=== PATIENT | male | born 1950 | race Caucasian/White ===

== ENCOUNTER 2017-06-15 14:12 | Inpatient (IN) | payer MEDICAID, MEDICARE ==
[~2017-06-15] VITALS: Ht 177.8 cm; Wt 142.4 kg
[~2017-06-15 14:12] MED LIST: GLIP10TA9 PO; HYDR25TA PO; METO100T14 PO; NIFE90TA45 PO; PIOG30TA10 PO; PROB500T26 PO; SIMV40TA5 PO
[2017-06-15 14:32] LABS: GLUCOSE,POINT OF CARE 169 MG/DL (70-110)
[2017-06-15] MEDS ORDERED: METF10002 PO (14:34)
[2017-06-15] MEDS ORDERED: ATOR20TA86 PO (14:34)
[2017-06-15] MEDS ORDERED: LOSA1TAB40 PO (14:34)
[2017-06-15] MEDS ORDERED: CLON-570 PO (14:34)
[2017-06-15] MEDS ORDERED: ASPI-556 PO (14:34)
[2017-06-15] MEDS ORDERED: SITA100 PO (14:34)
[2017-06-15] MEDS ORDERED: AMLO-512 PO (14:34)
[2017-06-15] MEDS ORDERED: MORPHINE SULFATE 4 MG/ML SYRINGE IVP ONE (15:30)
[2017-06-15] MEDS ORDERED: ONDANSETRON HCL 4 MG/2 ML VIAL IVP ONE (15:30)
[2017-06-15 15:42] LABS: BASOPHILS # (AUTO) 0.02 K/uL (0.00-0.20); BASOPHILS % (AUTO) 0.3 % (0.0-2.0); EOSINOPHILS # (AUTO) 0.34 K/uL (0.00-0.70); EOSINOPHILS % (AUTO) 3.58 % (1.0-6.0); HEMATOCRIT 34.7 % (41-53); HEMOGLOBIN 11.9 g/dL (13.5-17.5); LYMPHOCYTES % (AUTO) 21.5 % (22.0-44.0); MEAN CORPUSCULAR HEMOGLOBIN 29.4 pg (26.0-34.0); MEAN CORPUSCULAR HGB CONC 34.2 G/dL (31.0-37.0); MEAN CORPUSCULAR VOLUME 86 fL (80-100); MONOCYTES # (AUTO) 1.2 K/uL (0.1-1.0); NEUTROPHILS # (AUTO) 5.8 K/uL (1.8-7.7); NEUTROPHILS % (AUTO) 61.7 % (40.0-70.0); PLATELET COUNT (AUTO) 213 K/uL (150-450); RED BLOOD CELL COUNT(AUTO) 4.03 MIL/uL (4.50-5.90); WHITE BLOOD COUNT (AUTO) 9.4 K/uL (4.5-11.0)
[2017-06-15 16:02] LABS: CALCIUM, TOTAL 8.8 mg/dL (8.8-10.5); CREATININE 1.75 mg/dL (0.60-1.30); POTASSIUM 3.7 mmol/L (3.5-5.1)
[2017-06-15 16:12] LABS: ALBUMIN 3.1 g/dL (3.4-5.0); BILIRUBIN,TOTAL 0.3 mg/dL (0.1-1.0); TOTAL PROTEIN, SERUM 7.1 g/dL (6.4-8.2)
[2017-06-15] MEDS ORDERED: VANCOMYCIN HCL 1.5 GM in DEXTROSE 5%-WATER 250 ML IV ONE (16:30)
[2017-06-15] MEDS ORDERED: 0.9% SODIUM CHLORIDE 10 ML SYRINGE IVP PRN (17:00)
[2017-06-15] MEDS ORDERED: ACETAMINOPHEN 325 MG TABLET PO PRN ×2 (17:00→21:00)
[2017-06-15] MEDS ORDERED: ONDANSETRON HCL 4 MG/2 ML VIAL IVP PRN (17:00)
[2017-06-15 17:28] VITALS: BP 136/77
[2017-06-15] MEDS ORDERED: PNEUMOCOCCAL VACCINE POLYVALENT 0.5 ML VIAL [PPSV23] IM ONE (18:00)
[2017-06-15] MEDS ORDERED: INFLUENZA VIRUS VACCINE QVS 2017-18 (3YR+)/PF 60 MCG/0.5 ML SYRINGE IM ONE (18:00)
[2017-06-15] MEDS ORDERED: SODIUM CHLORIDE 0.9% 500 ML IV ONE (18:39)
[2017-06-15] MEDS ORDERED: DEXTROSE 50%-WATER 25 GM/50 ML SYRINGE IVP PRN (18:45)
[2017-06-15 20:01] VITALS: BP 145/77
[2017-06-15] MEDS: INSULIN ASPART 100 UNITS/ML SQ PRN (20:34)
[2017-06-15] MEDS ORDERED: BISACODYL 10 MG RECTAL RECTAL SUPPOSITORY PR PRN (21:00)
[2017-06-15] MEDS: DOCUSATE SODIUM 100 MG CAPSULE PO SCH (21:00)
[2017-06-15] MEDS ORDERED: ZOLPIDEM TARTRATE 5 MG TABLET PO PRN (21:00)
[2017-06-15] MEDS: HEPARIN SODIUM,PORCINE 5,000 UNITS/ML VIAL SQ SCH (21:07)
[2017-06-15] MEDS: ATORVASTATIN CALCIUM 20 MG TABLET PO SCH (21:07)
[2017-06-15] MEDS: CloNIDine HCL 0.1 MG TABLET PO SCH (21:07)
[2017-06-15 22:33] LABS: GLUCOSE COMMENT 1 Received Meds; GLUCOSE,POINT OF CARE 178 MG/DL (70-110)
[2017-06-16 00:03] VITALS: BP 116/60
[2017-06-16] MEDS: OxyCODONE HCL/ACETAMINOPHEN 5-325 MG TABLET PO PRN ×3 (02:45→20:27)
[2017-06-16 04:59] VITALS: BP 126/74
[2017-06-16 05:44] LABS: BASOPHILS # (AUTO) 0.04 K/uL (0.00-0.20); BASOPHILS % (AUTO) 0.4 % (0.0-2.0); EOSINOPHILS # (AUTO) 0.33 K/uL (0.00-0.70); HEMATOCRIT 32.5 % (41-53); HEMOGLOBIN 10.9 g/dL (13.5-17.5); LYMPHOCYTES # (AUTO) 2.3 K/uL (1.0-4.8); LYMPHOCYTES % (AUTO) 23.9 % (22.0-44.0); MEAN CORPUSCULAR HEMOGLOBIN 29.8 pg (26.0-34.0); MEAN CORPUSCULAR HGB CONC 33.5 G/dL (31.0-37.0); MEAN CORPUSCULAR VOLUME 89 fL (80-100); MONOCYTES # (AUTO) 1.3 K/uL (0.1-1.0); MONOCYTES % (AUTO) 13.1 % (2.0-9.0); NEUTROPHILS # (AUTO) 5.7 K/uL (1.8-7.7); NEUTROPHILS % (AUTO) 59.1 % (40.0-70.0); PLATELET COUNT (AUTO) 210 K/uL (150-450); RED BLOOD CELL COUNT(AUTO) 3.65 MIL/uL (4.50-5.90); WHITE BLOOD COUNT (AUTO) 9.7 K/uL (4.5-11.0)
[2017-06-16 05:48] LABS: GLUCOSE COMMENT 1 Received Meds; GLUCOSE,POINT OF CARE 141 MG/DL (70-110)
[2017-06-16 05:50] LABS: CALCIUM, TOTAL 8.3 mg/dL (8.8-10.5); CREATININE 1.7 mg/dL (0.60-1.30); POTASSIUM 3.5 mmol/L (3.5-5.1)
[2017-06-16] MEDS: INSULIN ASPART 100 UNITS/ML SQ PRN ×3 (06:46→20:29)
[2017-06-16 07:20] VITALS: BP 116/52
[2017-06-16] MEDS: CloNIDine HCL 0.1 MG TABLET PO SCH ×2 (07:47→20:27)
[2017-06-16] MEDS: PANTOPRAZOLE SODIUM 40 MG DR TABLET PO SCH (07:47)
[2017-06-16] MEDS: DOCUSATE SODIUM 100 MG CAPSULE PO SCH ×2 (07:47→20:28)
[2017-06-16] MEDS: ASPIRIN 81 MG CHEWABLE TABLET PO SCH (07:47)
[2017-06-16] MEDS: VANCOMYCIN HCL 1.5 GM in DEXTROSE 5%-WATER 250 ML IV SCH (07:48)
[2017-06-16] MEDS: HEPARIN SODIUM,PORCINE 5,000 UNITS/ML VIAL SQ SCH ×2 (07:48→20:28)
[2017-06-16 10:43] VITALS: BP 115/54
[2017-06-16 12:17] LABS: GLUCOSE COMMENT 1 Received Meds; GLUCOSE,POINT OF CARE 167 MG/DL (70-110)
[2017-06-16 15:10] VITALS: BP 114/67
[2017-06-16 18:38] LABS: GLUCOSE,POINT OF CARE 121 MG/DL (70-110)
[2017-06-16 19:23] VITALS: BP 115/54
[2017-06-16] MEDS: ATORVASTATIN CALCIUM 20 MG TABLET PO SCH (20:27)
[2017-06-17] VITALS (7 sets, daily range): BP systolic 123–155; BP diastolic 63–80
[2017-06-17] MEDS: OxyCODONE HCL/ACETAMINOPHEN 5-325 MG TABLET PO PRN ×2 (00:29→21:51)
[2017-06-17 04:13] LABS: GLUCOSE COMMENT 1 Received Meds; GLUCOSE,POINT OF CARE 154 MG/DL (70-110)
[2017-06-17 06:18] LABS: CALCIUM, TOTAL 8.4 mg/dL (8.8-10.5); CREATININE 1.64 mg/dL (0.60-1.30); POTASSIUM 3.5 mmol/L (3.5-5.1)
[2017-06-17] MEDS: CloNIDine HCL 0.1 MG TABLET PO SCH ×2 (08:13→20:09)
[2017-06-17] MEDS: HEPARIN SODIUM,PORCINE 5,000 UNITS/ML VIAL SQ SCH ×2 (08:13→20:08)
[2017-06-17] MEDS: VANCOMYCIN HCL 1.5 GM in DEXTROSE 5%-WATER 250 ML IV SCH (08:13)
[2017-06-17] MEDS: ASPIRIN 81 MG CHEWABLE TABLET PO SCH (08:14)
[2017-06-17] MEDS: PANTOPRAZOLE SODIUM 40 MG DR TABLET PO SCH (08:14)
[2017-06-17] MEDS: DOCUSATE SODIUM 100 MG CAPSULE PO SCH ×2 (08:14→20:09)
[2017-06-17] MEDS: LEVOFLOXACIN 500 MG TABLET PO SCH (09:18)
[2017-06-17] MEDS: INSULIN ASPART 100 UNITS/ML SQ PRN ×2 (11:14→21:50)
[2017-06-17 12:48] LABS: GLUCOSE COMMENT 1 Received Meds; GLUCOSE,POINT OF CARE 167 MG/DL (70-110)
[2017-06-17 17:52] LABS: GLUCOSE,POINT OF CARE 137 MG/DL (70-110)
[2017-06-17] MEDS ORDERED: VANCOMYCIN HCL 500 MG in DEXTROSE 5%-WATER 100 ML IV ONE (20:00)
[2017-06-17 20:03] LABS: GLUCOSE,POINT OF CARE 137 MG/DL (70-110)
[2017-06-17] MEDS: ATORVASTATIN CALCIUM 20 MG TABLET PO SCH (20:09)
[2017-06-18 00:23] LABS: GLUCOSE COMMENT 1 Received Meds; GLUCOSE,POINT OF CARE 157 MG/DL (70-110)
[2017-06-18 04:36] VITALS: BP 154/78
[2017-06-18 05:17] LABS: GLUCOSE COMMENT 1 Received Meds; GLUCOSE,POINT OF CARE 148 MG/DL (70-110)
[2017-06-18 05:27] LABS: CALCIUM, TOTAL 8.7 mg/dL (8.8-10.5); CREATININE 1.69 mg/dL (0.60-1.30); POTASSIUM 4.2 mmol/L (3.5-5.1)
[2017-06-18] MEDS: INSULIN ASPART 100 UNITS/ML SQ PRN ×3 (06:17→21:05)
[2017-06-18 07:26] VITALS: BP 122/76
[2017-06-18] MEDS: DOCUSATE SODIUM 100 MG CAPSULE PO SCH ×3 (08:10→21:00)
[2017-06-18] MEDS: PANTOPRAZOLE SODIUM 40 MG DR TABLET PO SCH (08:11)
[2017-06-18] MEDS: ASPIRIN 81 MG CHEWABLE TABLET PO SCH (08:11)
[2017-06-18] MEDS: HEPARIN SODIUM,PORCINE 5,000 UNITS/ML VIAL SQ SCH ×2 (08:11→19:55)
[2017-06-18] MEDS: CloNIDine HCL 0.1 MG TABLET PO SCH ×2 (08:11→19:55)
[2017-06-18] MEDS: VANCOMYCIN HCL 1 GM/D5% WATER 200 ML IV SCH ×2 (08:13→19:56)
[2017-06-18 11:32] VITALS: BP 141/78
[2017-06-18 13:27] LABS: GLUCOSE,POINT OF CARE 170 MG/DL (70-110)
[2017-06-18 13:58] LABS: BASOPHILS # (AUTO) 0.04 K/uL (0.00-0.20); BASOPHILS % (AUTO) 0.5 % (0.0-2.0); EOSINOPHILS # (AUTO) 0.29 K/uL (0.00-0.70); EOSINOPHILS % (AUTO) 3.55 % (1.0-6.0); HEMATOCRIT 33.5 % (41-53); HEMOGLOBIN 11.1 g/dL (13.5-17.5); LYMPHOCYTES # (AUTO) 1.5 K/uL (1.0-4.8); LYMPHOCYTES % (AUTO) 18.7 % (22.0-44.0); MEAN CORPUSCULAR HEMOGLOBIN 29.4 pg (26.0-34.0); MEAN CORPUSCULAR HGB CONC 33.3 G/dL (31.0-37.0); MEAN CORPUSCULAR VOLUME 88 fL (80-100); MONOCYTES # (AUTO) 1.1 K/uL (0.1-1.0); MONOCYTES % (AUTO) 14.1 % (2.0-9.0); NEUTROPHILS # (AUTO) 5.1 K/uL (1.8-7.7); NEUTROPHILS % (AUTO) 63.2 % (40.0-70.0); PLATELET COUNT (AUTO) 216 K/uL (150-450); RED BLOOD CELL COUNT(AUTO) 3.79 MIL/uL (4.50-5.90); RED CELL DISTRIBUTION WIDTH 15.8 % (11.5-14.5); WHITE BLOOD COUNT (AUTO) 8.1 K/uL (4.5-11.0)
[2017-06-18 16:19] VITALS: BP 155/89
[2017-06-18 19:19] VITALS: BP 157/72
[2017-06-18 19:32] LABS: GLUCOSE,POINT OF CARE 120 MG/DL (70-110)
[2017-06-18] MEDS: OxyCODONE HCL/ACETAMINOPHEN 5-325 MG TABLET PO PRN (19:55)
[2017-06-18 23:00] VITALS: BP 138/71
[2017-06-19 03:13] LABS: GLUCOSE COMMENT 1 Received Meds; GLUCOSE,POINT OF CARE 192 MG/DL (70-110)
[2017-06-19 04:26] VITALS: BP 137/81
[2017-06-19 06:23] LABS: GLUCOSE COMMENT 1 Received Meds; GLUCOSE,POINT OF CARE 173 MG/DL (70-110)
[2017-06-19 06:25] LABS: ALBUMIN 2.9 g/dL (3.4-5.0); BILIRUBIN,TOTAL 0.4 mg/dL (0.1-1.0); CALCIUM, TOTAL 8.6 mg/dL (8.8-10.5); CREATININE 1.6 mg/dL (0.60-1.30); TOTAL PROTEIN, SERUM 6.3 g/dL (6.4-8.2)
[2017-06-19] MEDS: INSULIN ASPART 100 UNITS/ML SQ PRN ×3 (06:30→20:46)
[2017-06-19 07:11] LABS: POTASSIUM 3.7 mmol/L (3.5-5.1)
[2017-06-19] MEDS: VANCOMYCIN HCL 1 GM/D5% WATER 200 ML IV SCH ×2 (08:17→20:08)
[2017-06-19] MEDS: HEPARIN SODIUM,PORCINE 5,000 UNITS/ML VIAL SQ SCH ×2 (08:20→20:08)
[2017-06-19 08:21] VITALS: BP 153/75
[2017-06-19] MEDS: AmLODIPine BESYLATE 10 MG TABLET PO SCH (08:21)
[2017-06-19] MEDS: LOSARTAN POTASSIUM 50 MG TABLET PO SCH (08:21)
[2017-06-19] MEDS: LEVOFLOXACIN 500 MG TABLET PO SCH (08:21)
[2017-06-19] MEDS: PANTOPRAZOLE SODIUM 40 MG DR TABLET PO SCH (08:21)
[2017-06-19] MEDS: CloNIDine HCL 0.1 MG TABLET PO SCH ×2 (08:21→20:08)
[2017-06-19] MEDS: SitaGLIPtin PHOSPHATE 100 MG TABLET PO SCH (08:21)
[2017-06-19] MEDS: DOCUSATE SODIUM 100 MG CAPSULE PO SCH ×2 (08:21→20:08)
[2017-06-19] MEDS: ATORVASTATIN CALCIUM 20 MG TABLET PO SCH (08:22)
[2017-06-19] MEDS: ASPIRIN 81 MG EC TABLET PO SCH (08:22)
[2017-06-19 12:06] VITALS: BP 147/75
[2017-06-19 15:54] VITALS: BP 124/77
[2017-06-19 17:22] LABS: GLUCOSE,POINT OF CARE 182 MG/DL (70-110)
[2017-06-19 19:28] VITALS: BP 143/76
[2017-06-19 23:33] VITALS: BP 136/52
[2017-06-20 01:33] LABS: GLUCOSE COMMENT 1 Received Meds; GLUCOSE,POINT OF CARE 239 MG/DL (70-110)
[2017-06-20 01:33] LABS: GLUCOSE,POINT OF CARE 121 MG/DL (70-110)
[2017-06-20 04:45] VITALS: BP 152/76
[2017-06-20] MEDS: INSULIN ASPART 100 UNITS/ML SQ PRN ×2 (05:45→12:06)
[2017-06-20 06:18] LABS: GLUCOSE COMMENT 1 Received Meds; GLUCOSE,POINT OF CARE 168 MG/DL (70-110)
[2017-06-20 06:40] LABS: ALBUMIN 2.8 g/dL (3.4-5.0); BILIRUBIN,TOTAL 0.3 mg/dL (0.1-1.0); CALCIUM, TOTAL 8.4 mg/dL (8.8-10.5); CREATININE 1.72 mg/dL (0.60-1.30); POTASSIUM 3.7 mmol/L (3.5-5.1); TOTAL PROTEIN, SERUM 6.4 g/dL (6.4-8.2)
[2017-06-20 07:15] VITALS: BP 148/81
[2017-06-20] MEDS: CloNIDine HCL 0.1 MG TABLET PO SCH (08:05)
[2017-06-20] MEDS: VANCOMYCIN HCL 1 GM/D5% WATER 200 ML IV SCH (08:05)
[2017-06-20] MEDS: ATORVASTATIN CALCIUM 20 MG TABLET PO SCH (08:06)
[2017-06-20] MEDS: LOSARTAN POTASSIUM 50 MG TABLET PO SCH (08:06)
[2017-06-20] MEDS: ASPIRIN 81 MG EC TABLET PO SCH (08:06)
[2017-06-20] MEDS: AmLODIPine BESYLATE 10 MG TABLET PO SCH (08:06)
[2017-06-20] MEDS: DOCUSATE SODIUM 100 MG CAPSULE PO SCH (08:06)
[2017-06-20] MEDS: SitaGLIPtin PHOSPHATE 100 MG TABLET PO SCH (08:06)
[2017-06-20] MEDS: PANTOPRAZOLE SODIUM 40 MG DR TABLET PO SCH (08:07)
[2017-06-20] MEDS: HEPARIN SODIUM,PORCINE 5,000 UNITS/ML VIAL SQ SCH (08:07)
[2017-06-20 11:03] LABS: GLUCOSE COMMENT 1 Received Meds; GLUCOSE,POINT OF CARE 197 MG/DL (70-110)
[2017-06-20 11:45] VITALS: BP 151/66
[2017-06-20 15:11] VITALS: BP 148/78
[2017-06-20] MEDS: OxyCODONE HCL/ACETAMINOPHEN 5-325 MG TABLET PO PRN (16:33)
== END 2017-06-20 17:05 | disposition home or self-care (01) | DRG 603 ==
LOC: EMS 14:13 → 6N 16:53
PROVIDERS: ADMIT Internal Medicine; ATTEND Internal Medicine
PROC: 3E0234Z Introduction of Serum, Toxoid and Vaccine into Muscle, Percutaneous Approach (ICD-10-PCS; principal; 2017-06-15)
DX: L03.116 Cellulitis of left lower limb (principal); E11.22 Type 2 diabetes mellitus with diabetic chronic kidney disease; N18.3 Chronic kidney disease, stage 3 (moderate); Z68.42 Body mass index [BMI] 45.0-49.9, adult; E66.01 Morbid (severe) obesity due to excess calories; I12.9 Hypertensive chronic kidney disease with stage 1 through stage 4 chronic kidney disease, or unspecified chronic kidney disease; E78.00 Pure hypercholesterolemia, unspecified; Z90.49 Acquired absence of other specified parts of digestive tract; Z23 Encounter for immunization
CPT/HCPCS: 73700; 82962; 87040; 87070; 87205; 90471; 93306; 93970; 96365; 96375; 99285; J1644; J2270; J2405; J3370; J7040; J7060

== ENCOUNTER 2017-08-07 12:28 | Inpatient (IN) | payer MEDICARE ==
[~2017-08-07] VITALS: Ht 172.7 cm; Wt 136.5 kg
[~2017-08-07 12:28] MED LIST changes: +AMLO-512 PO; +ASPI-556 PO; +ATOR20TA86 PO; +CLON-570 PO; -GLIP10TA9 PO; -HYDR25TA PO; +LOSA1TAB40 PO; +METF10002 PO; -NIFE90TA45 PO; -PIOG30TA10 PO; -PROB500T26 PO; -SIMV40TA5 PO; +SITA100 PO
[2017-08-07 13:16] LABS: GLUCOSE,POINT OF CARE 130 MG/DL (70-110)
[2017-08-07 13:48] LABS: BASOPHILS # (AUTO) 0.11 K/uL (0.00-0.20); BASOPHILS % (AUTO) 0.8 % (0.0-2.0); EOSINOPHILS # (AUTO) 0.33 K/uL (0.00-0.70); EOSINOPHILS % (AUTO) 2.38 % (1.0-6.0); HEMATOCRIT 37.4 % (41-53); HEMOGLOBIN 12.3 g/dL (13.5-17.5); LYMPHOCYTES # (AUTO) 1.5 K/uL (1.0-4.8); LYMPHOCYTES % (AUTO) 11.1 % (22.0-44.0); MEAN CORPUSCULAR HEMOGLOBIN 28.8 pg (26.0-34.0); MEAN CORPUSCULAR HGB CONC 32.9 G/dL (31.0-37.0); MEAN CORPUSCULAR VOLUME 88 fL (80-100); MONOCYTES # (AUTO) 1.7 K/uL (0.1-1.0); MONOCYTES % (AUTO) 12.5 % (2.0-9.0); NEUTROPHILS # (AUTO) 10.2 K/uL (1.8-7.7); NEUTROPHILS % (AUTO) 73.3 % (40.0-70.0); PLATELET COUNT (AUTO) 283 K/uL (150-450); RED BLOOD CELL COUNT(AUTO) 4.27 MIL/uL (4.50-5.90); RED CELL DISTRIBUTION WIDTH 15.6 % (11.5-14.5); WHITE BLOOD COUNT (AUTO) 13.9 K/uL (4.5-11.0)
[2017-08-07 14:05] LABS: CALCIUM, TOTAL 9.2 mg/dL (8.8-10.5); CREATININE 1.92 mg/dL (0.60-1.30); POTASSIUM 3.9 mmol/L (3.5-5.1)
[2017-08-07 14:11] LABS: ALBUMIN 3.4 g/dL (3.4-5.0); BILIRUBIN,TOTAL 0.4 mg/dL (0.1-1.0)
[2017-08-07 14:20] LABS: LACTIC ACID 1.8 mmol/L (0.4-2.0)
[2017-08-07] MEDS ORDERED: DEXTROSE 50%-WATER 25 GM/50 ML SYRINGE IVP PRN (15:45)
[2017-08-07] MEDS ORDERED: BISACODYL 10 MG RECTAL RECTAL SUPPOSITORY PR PRN (15:45)
[2017-08-07] MEDS ORDERED: OxyCODONE HCL/ACETAMINOPHEN 5-325 MG TABLET PO PRN (15:45)
[2017-08-07] MEDS ORDERED: ACETAMINOPHEN 325 MG TABLET PO PRN (15:45)
[2017-08-07] MEDS ORDERED: ALBUTEROL SULFATE 2.5 MG/0.5 ML NEB SOLUTION NEB PRN (15:45)
[2017-08-07] MEDS: ASPIRIN 81 MG CHEWABLE TABLET PO SCH (15:54)
[2017-08-07] MEDS ORDERED: VANCOMYCIN HCL 1.25 GM in DEXTROSE 5%-WATER 250 ML IV ONE (16:30)
[2017-08-07 16:35] VITALS: BP 133/55
[2017-08-07] MEDS ORDERED: SODIUM CHLORIDE 0.9% 500 ML IV ONE (16:36)
[2017-08-07] MEDS: HEPARIN SODIUM,PORCINE 5,000 UNITS/ML VIAL SQ SCH ×2 (17:44→23:51)
[2017-08-07 19:42] LABS: GLUCOSE,POINT OF CARE 124 MG/DL (70-110)
[2017-08-07] MEDS: DOCUSATE SODIUM 100 MG CAPSULE PO SCH (20:06)
[2017-08-07] MEDS: ATORVASTATIN CALCIUM 20 MG TABLET PO SCH (20:06)
[2017-08-07] MEDS: INSULIN ASPART 100 UNITS/ML SQ PRN (20:12)
[2017-08-07 20:19] VITALS: BP 131/56
[2017-08-07 23:18] VITALS: BP 104/58
[2017-08-08 05:00] VITALS: BP 131/74
[2017-08-08] MEDS: INSULIN ASPART 100 UNITS/ML SQ PRN ×3 (05:54→21:56)
[2017-08-08 07:00] LABS: CREATININE 1.88 mg/dL (0.60-1.30); POTASSIUM 3.2 mmol/L (3.5-5.1)
[2017-08-08] MEDS ORDERED: VANCOMYCIN HCL 1 GM/D5% WATER 200 ML IV SCH (08:00)
[2017-08-08 08:05] VITALS: BP 131/62
[2017-08-08] MEDS: DOCUSATE SODIUM 100 MG CAPSULE PO SCH ×2 (08:14→20:08)
[2017-08-08] MEDS: HEPARIN SODIUM,PORCINE 5,000 UNITS/ML VIAL SQ SCH ×2 (08:14→16:11)
[2017-08-08] MEDS: ASPIRIN 81 MG CHEWABLE TABLET PO SCH (08:14)
[2017-08-08] MEDS: PANTOPRAZOLE SODIUM 40 MG DR TABLET PO SCH (08:14)
[2017-08-08] MEDS ORDERED: POTASSIUM CHLORIDE 10 MEQ ER TABLET PO ONE (09:00)
[2017-08-08 11:32] VITALS: BP 121/78
[2017-08-08 14:22] LABS: GLUCOSE COMMENT 1 Received Meds; GLUCOSE,POINT OF CARE 153 MG/DL (70-110)
[2017-08-08 15:48] VITALS: BP 144/79
[2017-08-08 17:37] LABS: GLUCOSE,POINT OF CARE 142 MG/DL (70-110)
[2017-08-08 17:37] LABS: GLUCOSE,POINT OF CARE 191 MG/DL (70-110)
[2017-08-08 19:46] VITALS: BP 137/75
[2017-08-08] MEDS ORDERED: SODIUM CHLORIDE 0.9% 500 ML IV ONE (20:06)
[2017-08-08] MEDS: ATORVASTATIN CALCIUM 20 MG TABLET PO SCH (20:08)
[2017-08-08] MEDS: VANCOMYCIN HCL 750 MG in DEXTROSE 5%-WATER 150 ML IV SCH (20:11)
[2017-08-08 23:49] VITALS: BP 148/61
[2017-08-09] MEDS: HEPARIN SODIUM,PORCINE 5,000 UNITS/ML VIAL SQ SCH ×3 (00:04→16:00)
[2017-08-09 04:03] LABS: GLUCOSE,POINT OF CARE 124 MG/DL (70-110)
[2017-08-09 04:03] LABS: GLUCOSE COMMENT 1 Received Meds; GLUCOSE,POINT OF CARE 193 MG/DL (70-110)
[2017-08-09 04:21] VITALS: BP 143/81
[2017-08-09 06:19] LABS: BASOPHILS % (AUTO) 0.3 % (0.0-2.0); EOSINOPHILS % (AUTO) 3.8 % (1.0-6.0); HEMOGLOBIN 11.5 g/dL (13.5-17.5); LYMPHOCYTES # (AUTO) 2.1 K/uL (1.0-4.8); LYMPHOCYTES % (AUTO) 16.1 % (22.0-44.0); MEAN CORPUSCULAR HEMOGLOBIN 29.8 pg (26.0-34.0); MEAN CORPUSCULAR HGB CONC 33.8 G/dL (31.0-37.0); MEAN CORPUSCULAR VOLUME 88 fL (80-100); MONOCYTES # (AUTO) 1.6 K/uL (0.1-1.0); MONOCYTES % (AUTO) 12.6 % (2.0-9.0); NEUTROPHILS # (AUTO) 8.7 K/uL (1.8-7.7); NEUTROPHILS % (AUTO) 67.2 % (40.0-70.0); PLATELET COUNT (AUTO) 235 K/uL (150-450); RED BLOOD CELL COUNT(AUTO) 3.86 MIL/uL (4.50-5.90); RED CELL DISTRIBUTION WIDTH 15.3 % (11.5-14.5)
[2017-08-09] MEDS: INSULIN ASPART 100 UNITS/ML SQ PRN ×2 (06:33→11:32)
[2017-08-09 07:00] LABS: CALCIUM, TOTAL 9.1 mg/dL (8.8-10.5); CREATININE 1.96 mg/dL (0.60-1.30); POTASSIUM 3.5 mmol/L (3.5-5.1)
[2017-08-09 07:38] VITALS: BP 125/73
[2017-08-09 07:43] LABS: GLUCOSE COMMENT 1 Received Meds; GLUCOSE,POINT OF CARE 154 MG/DL (70-110)
[2017-08-09] MEDS: ASPIRIN 81 MG CHEWABLE TABLET PO SCH (08:12)
[2017-08-09] MEDS: PANTOPRAZOLE SODIUM 40 MG DR TABLET PO SCH (08:12)
[2017-08-09] MEDS: VANCOMYCIN HCL 750 MG in DEXTROSE 5%-WATER 150 ML IV SCH (08:12)
[2017-08-09] MEDS: DOCUSATE SODIUM 100 MG CAPSULE PO SCH (08:12)
[2017-08-09 12:58] VITALS: BP 120/63
[2017-08-09 13:37] LABS: GLUCOSE,POINT OF CARE 193 MG/DL (70-110)
[2017-08-09] MEDS ORDERED: CLIN300C3 PO (14:24)
[2017-08-09 15:45] VITALS: BP 154/77
== END 2017-08-09 18:45 | disposition home or self-care (01) | DRG 603 ==
LOC: EMS 12:30 → 6N 15:08
PROVIDERS: ADMIT Internal Medicine; ATTEND Internal Medicine
DX: L03.115 Cellulitis of right lower limb (principal); E11.22 Type 2 diabetes mellitus with diabetic chronic kidney disease; K74.60 Unspecified cirrhosis of liver; Z68.42 Body mass index [BMI] 45.0-49.9, adult; N18.3 Chronic kidney disease, stage 3 (moderate); E66.01 Morbid (severe) obesity due to excess calories; E78.5 Hyperlipidemia, unspecified; I12.9 Hypertensive chronic kidney disease with stage 1 through stage 4 chronic kidney disease, or unspecified chronic kidney disease; I87.2 Venous insufficiency (chronic) (peripheral); L03.116 Cellulitis of left lower limb; B95.61 Methicillin susceptible Staphylococcus aureus infection as the cause of diseases classified elsewhere
CPT/HCPCS: 82962; 83605; 87070; 87205; 99285; J1644; J3370; J7040; J7060